=== PATIENT | female | born 1955 | race Caucasian/White ===

== ENCOUNTER 2016-02-08 13:33 | Inpatient (IN) | payer OTHER ==
--- NOTE | 2016-02-08 14:07 | ERNOTE ---
Medical Problem HPI - Narrative Date of Service: 02/08/16 - General Chief Complaint: General Assessment Time Seen by Provider: 02/08/16 13:58 Source: patient, family, RN/MD, EMS, RN notes reviewed, EMS notes reviewed, old records Exam Limitations: clinical condition - lethargic, arouses by voice to short conversation, falls back to sleep quickly - Immun/Allergies/Home Medications Immunizations: IMMUNIZATION HX Immunizations Up to Date No History of Influenza Vaccine Yes Hx Pneumococcal Vaccination Yes Allergies/Adverse Reactions: Allergies Penicillins Adverse Reaction (Intermediate, Verified 02/08/16 16:26) "body puffed up" topiramate [From Topamax] Adverse Reaction (Intermediate, Verified 02/08/16 16: 26) hallucinations, altering of mood gabapentin Adverse Reaction (Mild, Verified 02/08/16 16:26) PETE LOWER EXTREMITY WEAKNESS, NAUSEA latex Adverse Reaction (Mild, Verified 02/08/16 16:26) rash levofloxacin [From Levaquin] Adverse Reaction (Mild, Verified 02/08/16 16:26) Vomiting senna Adverse Reaction (Mild, Verified 02/08/16 16:26) Diarrhea Sulfa (Sulfonamide Antibiotics) [Sulfa(Sulfonamide Antibiotics)] Adverse Reaction (Mild, Verified 02/08/16 16:26) rash Home Medications: HOME MEDICATIONS Acetaminophen [Tylenol] 1,000 mg PO Q6H PRN 06/24/14 [Last Taken Unknown] Carbidopa/Levodopa 25/100 [Sinemet 25/100] 1 tab PO TID 06/24/14 [Last Taken Unknown] Clonazepam 4 mg PO HS 06/24/14 [Last Taken Unknown] Escitalopram Oxalate [Lexapro] 20 mg PO DAILY 06/24/14 [Last Taken Unknown] [place] Carbonate 300 mg PO BID 06/24/14 [Last Taken Unknown] Multivitamins [Multivitamin Junior] 1 cap PO DAILY 06/24/14 [Last Taken Unknown] Polyethylene Glycol 3350 [Miralax] 17 gm PO DAILY PRN 06/24/14 [Last Taken Unknown] traZODone HCL [Desyrel] 300 mg PO HS 06/24/14 [Last Taken Unknown] Calcium Carbonate [Msol-Fev-831] 500 mg PO TID 11/22/15 [Last Taken Unknown] Calcium Polycarbophil [Fibercon] 2 tab PO DAILY 11/22/15 [Last Taken Unknown] Cholecalciferol (Vitamin D3) [Vitamin D3] 2,000 unit PO DAILY 11/22/15 [Last Taken Unknown] Lamotrigine [Lamictal] 200 mg PO QPM 11/22/15 [Last Taken Unknown] Pregabalin [Lyrica] 25 mg PO HS 11/22/15 [Last Taken Unknown] Ziprasidone HCl [Geodon] 80 mg PO HS 11/22/15 [Last Taken Unknown] Cefuroxime Axetil [Ceftin] 500 mg PO BID 02/08/16 [Last Taken Unknown] Glatiramer Acetate [Copaxone] 20 mg SQ DAILY 02/08/16 [Last Taken Unknown] - History of Present History Narrative: This 60 year old female is brought into the Emergency Department by EMS ambulance and is soon accompanied by her who is also her primary caregiver. The has been having increasing problems arousing the patient today. At one point, he had difficulty lifting her so he called EMS for lifting help. Once they arrived and helped lift her, the patient's and EMS personnel became concerned enough that they decided to transport her here to the Emergency Department for evaluation. The patient smokes and strangely has numerous cigarette burn holes all over the chest and front of her nightgown she is wearing at this time. There are even 3 reddened cigarette burn joseph on the skin of her upper chest as well. The patient arouses easily to voice, but quickly falls right back to sleep after uttering a partial sentence or two in answer to my questions. She reports that she is fine and has no physical complaints at this time. Timing: constant Severity: moderate Modifying Factors - (Improves): Present: other - nothing in particular seems to make her primary problem of lethargy any better Modifying Factors - (Worsens): Present: other - it is unclear at this what seems to be worsening her lethargy Review of Systems - Review of Systems Constitutional: Present: no symptoms reported EYE: Present: no symptoms reported ENT: Present: no symptoms reported Respiratory: Present: no symptoms reported Cardiology: Present: no symptoms reported Gastrointestinal/Abdominal: Present: no symptoms reported Genitourinary: Present: no symptoms reported Musculoskeletal: Present: no symptoms reported Skin: Present: no symptoms reported Neurological: Present: no symptoms reported Endocrine: Present: no symptoms reported Hematologic/Lymphatic: Present: no symptoms reported Psych: Present: no symptoms reported All Other Systems: All systems neg except as marked - Patient's Past Medical History Patient History - Cancer: Skin Patient History - Surgical Procedures: Hysterectomy, T & A - Family History Mother Family History - Medical: Family History - Cardiac/Respiratory: CHF Father Family History - Medical: Other Family History - Cardiac/Respiratory: No pertinent hx - Social History Living Situations: significant other Smoking Status: Current every day smoker Alcohol Use: none Drug Use: none Physical Exam - Physical Exam General Appearance: Present: wd/wn, no apparent distress, lethargic, obese, sleeping/easy to arouse Eye Exam: Normal inspection: bilateral, PERRL: bilateral, EOMI: bilateral Ears, Nose, Throat: Present: normal ENT inspection, hearing grossly normal, normal pharynx Neck: Present: normal inspection, nontender Respiratory: Present: no respiratory distress, normal breath sounds, no accessory muscle use, chest nontender, lungs clear Cardiovascular/Chest: Present: regular rate, rhythm, no murmur, normal peripheral pulses Peripheral Pulses: N=norm/S=strong/W=weak/B=bound/A=absent: Carotid (R): Normal , Carotid (L): Normal, Radial (R): Normal, Radial (L): Normal, Femoral (R): Normal, Femoral (L): Normal, Dorsalis-pedis (R): Normal, Dorsalis-pedis (L): Normal Gastrointestinal/Abdominal: Present: normal bowel sounds, nontender, nondistended, soft, no organomegaly. Absent: guarding, rebound Back Exam: Present: normal inspection, normal range of motion, no CVA tenderness , no vertebral tenderness Extremity Exam: Present: normal inspection, non-tender, no edema, normal range of motion Neurological Exam: Present: alert, oriented, normal mood/affect, no motor/ sensory deficits DTR: N=norm/NB=norm/brisk/A=abs/DD=dull/dimin/HC=hyperactive: Bicep (R): Normal , Bicep (L): Normal, Knee (R): Normal, Knee (L): Normal Skin Exam: Present: normal color, warm/dry, other - 3 small reddened areas on upper chest that appear to be healing cigarette leahy Lymphatic Exam: Present: no adenopathy ED Progress - Vital Signs Vital Signs: Vital Signs 02/08/16 13:44 Temperature 37.7 C H Pulse Rate 61 Respiratory 16 Rate Blood Pressure 161/66 O2 Sat by Pulse 95 Oximetry - X-Ray X-Ray #1 X-Ray: chest Interpretation: Reviewed by me X-ray Comments: Bronchial wall prominence suggestive of bronchitis - CT/Ultrasound CT/Ultrasound Narrative: Head CT without contrast shows no acute intracranial process - Progress/Reassessment Chief Complaint: General Assessment Progress:: Improved Plan - Plan Plan: I discussed the patient's case with Dr Marita Matamoros, the patient's Primary Care Physician. He agreed to admit the patient to the hospital for further workup and care. Departure - Departure Clinical Impression: Altered mental status Qualifiers: Altered mental status type: stupor Qualified Code(s): R40.1 - Stupor Disposition: [facility] Condition: Stable
[2016-02-08] MEDS ORDERED: NORMAL SALINE 1,000 ML IV ONE (14:20)
[2016-02-08 14:47] LABS: Hematocrit 41.8 % (37.0-47.0); Hemoglobin 13.9 gm/dL (12.5-16.0); Mean Cell Volume 100.2 fl (78-100); Mean Corpuscular Hemoglobin 33.3 pg (27-31); Mean Corpuscular Hgb Conc 33.3 g/dl (32-36); Mean Platelet Volume 10.5 fl (6.0-9.5); Neutrophil # 11.5 K/mm3 (1.3-6.0); Neutrophil % 78.6 % (42-75.0); Platelet Count 176 K/mm3 (150-450); Red Blood Count 4.17 M/mm3 (4.2-5.4); Red Cell Distribution Width 12.3 % (11.5-14.0); White Blood Count 14.6 K/mm3 (4.0-10.5)
[2016-02-08 15:01] LABS: Albumin * 3.7 gm/dl (3.4-5.0); Anion Gap 11.6 mmol/L (6.8-13.8); BUN/Creatinine Ratio 10.3 (9.0-21.6); Bilirubin, Total 0.9 mg/dL (0.0-1.1); Ca. Corrected For Albumin 12.4 mg/dL (8.4-10.2); Calcium * 12.5 mg/dL (7.9-10.9); Carbon Dioxide 29.2 mmol/L (24-32.6); Potassium 3.8 mmol/L (3.4-4.6); Total Protein 7.1 gm/dL (6.2-8.2)
[2016-02-08 16:32] LABS: Urine Bilirubin Negative (NEGATIVE); Urine Blood Negative /ul (NEGATIVE); Urine Ketone Negative (NEGATIVE); Urine Nitrite Negative (NEGATIVE); Urine Protein Negative (NEGATIVE); Urine Urobilinogen Normal (NORMAL); Urine pH 7.5 pH (5.0-7.0)
[2016-02-08 16:47] LABS: Urine Appearance Slightly Cloudy; Urine Bacteria None Seen; Urine Color Yellow; Urine RBC None Seen /hpf (0-5); Urine WBC TRACE /hpf (0-5)
[2016-02-08] MEDS ORDERED: POLYETHYLENE GLYCOL 3350 119 GM BTL PO PRN (19:00)
[2016-02-08] MEDS ORDERED: AZITHROMYCIN 500 MG in DEXTROSE 5 % IN WATER 250 ML IV ONE ×2 (19:00)
[2016-02-08] MEDS: ENOXAPARIN SODIUM 40 MG/0.4 ML SYRG SC SCH (19:03)
[2016-02-08] MEDS: NORMAL SALINE 1,000 ML IV PRN (19:03)
--- NOTE | 2016-02-08 19:24 | HP ---
Chief Complaint - Chief Complaint Date of Service: 02/08/16 Time of Service: 19:05 Chief Complaint: Falls History of Present Illness: This is a 60 y/o woman with MS, Parkinson's and Bipolar Disorder. She resides at home with her . He called the EMS ambulance today because she had multiple falls this afternoon, and he was unable to get her up. In the ER, she was very lethargic, confused, and had lots of cigarette holes in her night gown , and some recent skin leahy, as she smokes, and apparently drops her cigarettes , at least recently. CT scan disclosed sphenoidal sinusitis. CXR was consistent with bronchits. WBC was modestly elevated, and Calcium level was 12.3. The patient also takes [place]. Cultures are pending. - Patient's Past Medical History Patient History - Medical: Bipolar, Chronic Pain, GERD, Headache, Other - insomnia, constipation, low back pain, diarrhea, uninary incontinenc, diarrhea, neuropathy,GERD Patient History - Cardiac/Respiratory: Hypertension, Hyperlipidemia Patient History - Cancer: No Hx of Cancer, Skin Patient History - Surgical Procedures: Hysterectomy, T & A, Other - cubital tunnel surgery, dental extraction, urinary incontinence procedure, stool disimpaction - Family History Mother Family History - Cardiac/Respiratory: CHF Father Family History - Medical: Other - Parkinson's - Social History Living Situations: significant other Smoking Status: Current some day smoker Have you smoked in the past 12 months: Yes - unknown Alcohol Use: none Drug Use: none Review Of Systems (GEN) - Review of Systems Generalized/Overall Review: Present: No Symptoms Reported - unable to provide, poor historian due to lethargy. Allergies/Adverse Reactions: Allergies Allergy/AdvReac Type Severity Reaction Status Date / Time Penicillins AdvReac Intermediate "body Verified 02/08/16 16:26 puffed up" topiramate [From Topamax] AdvReac Intermediate hallucinations, Verified 16:26 altering of mood gabapentin AdvReac Mild PETE LOWER Verified 02/08/16 16:26 EXTREMITY WEAKNESS, NAUSEA latex AdvReac Mild rash Verified 02/08/16 16:26 levofloxacin [From Levaquin] AdvReac Mild Vomiting Verified 02/08/16 16:26 senna AdvReac Mild Diarrhea Verified 02/08/16 16:26 Sulfa (Sulfonamide AdvReac Mild rash Verified 02/08/16 16:26 Antibiotics) [Sulfa(Sulfonamide Antibiotics)] Home Medications: HOME MEDICATIONS Acetaminophen [Tylenol] 1,000 mg PO Q6H PRN 06/24/14 [Last Taken Unknown] Carbidopa/Levodopa 25/100 [Sinemet 25/100] 1 tab PO TID 06/24/14 [Last Taken Unknown] Clonazepam 4 mg PO HS 06/24/14 [Last Taken Unknown] Escitalopram Oxalate [Lexapro] 20 mg PO DAILY 06/24/14 [Last Taken Unknown] [place] Carbonate 300 mg PO BID 06/24/14 [Last Taken Unknown] Multivitamins [Multivitamin Junior] 1 cap PO DAILY 06/24/14 [Last Taken Unknown] Polyethylene Glycol 3350 [Miralax] 17 gm PO DAILY PRN 06/24/14 [Last Taken Unknown] traZODone HCL [Desyrel] 300 mg PO HS 06/24/14 [Last Taken Unknown] Calcium Carbonate [[id number]-321] 500 mg PO TID 11/22/15 [Last Taken Unknown] Calcium Polycarbophil [Fibercon] 2 tab PO DAILY 11/22/15 [Last Taken Unknown] Cholecalciferol (Vitamin D3) [Vitamin D3] 2,000 unit PO DAILY 11/22/15 [Last Taken Unknown] Lamotrigine [Lamictal] 200 mg PO QPM 11/22/15 [Last Taken Unknown] Pregabalin [Lyrica] 25 mg PO HS 11/22/15 [Last Taken Unknown] Ziprasidone HCl [Geodon] 80 mg PO HS 11/22/15 [Last Taken Unknown] Cefuroxime Axetil [Ceftin] 500 mg PO BID 02/08/16 [Last Taken Unknown] Glatiramer Acetate [Copaxone] 20 mg SQ DAILY 02/08/16 [Last Taken Unknown] Exam - Exam Vital Signs: Vital Signs - Last Taken Selected Entries 02/08/16 18:46 Temperature 37.0 C Temperature Oral Source Pulse Rate 59 L Respiratory 20 Rate Blood Pressure 149/72 O2 Sat by Pulse 96 Oximetry Oxygen Delivery Room Air Method Constitutional: Present: Obtunded, Morbidly obese, Looks Older than stated age ENT Exam: Present: normal ENT inspection Eye Exam: bilateral eye: normal inspection, PERRL, EOMI Neck: Present: normal inspection Back Exam: Present: normal inspection Respiratory: Present: lungs clear, no respiratory distress Cardiovascular/Chest: Present: regular rate, rhythm, no murmur Abdomen: Present: Normal bowel sounds, soft, nontender, nondistended, no rebound tenderness, no hepatospenomegaly, no masses, obese Extremity: Present: lower extremity edema Skin Exam: Present: no cyanosis, cool/dry, other - a few recent cigarette leahy on torso Neurologic: Present: motor weakness, disoriented x 3, other - wheelchair Appearance: Present: other Eye contact: Present: decreased rate of speech Thoughts: Present: other Diagnostic Studies: Laboratory Results WBC 14.6 K/mm3 (4.0-10.5) H 02/08/16 14:36 RBC 4.17 M/mm3 (4.2-5.4) L 02/08/16 14:36 Hgb 13.9 gm/dL (12.5-16.0) 02/08/16 14:36 Hct 41.8 % (37.0-47.0) 02/08/16 14:36 MCV 100.2 fl (78-100) H 02/08/16 14:36 MCH 33.3 pg (27-31) H 02/08/16 14:36 MCHC 33.3 g/dl (32-36) 02/08/16 14:36 RDW 12.3 % (11.5-14.0) 02/08/16 14:36 Plt Count 176 K/mm3 (150-450) 02/08/16 14:36 MPV 10.5 fl (6.0-9.5) H 02/08/16 14:36 Immature Gran % (Auto) 0.40 % (0.001-0.429) 02/08/16 14:36 Immature Gran # (Auto) 0.06 K/mm3 (0.000-0.0310) H 02/08/16 14:36 Neutrophils % 78.6 % (42-75.0) H 02/08/16 14:36 Lymphocytes % 13.9 % (20-51) L 02/08/16 14:36 Monocytes % 6.0 % (0.0-9) 02/08/16 14:36 Eosinophils % 0.8 % (0.0-3.0) 02/08/16 14:36 Basophils % 0.3 % (0.0-1.0) 02/08/16 14:36 Nucleated RBC % 0.0 k/mm3 (0-1) 02/08/16 14:36 Neutrophils # 11.5 K/mm3 (1.3-6.0) H 02/08/16 14:36 Lymphocytes # 2.0 k/mm3 (1.5-3.5) 02/08/16 14:36 Monocytes # 0.9 k/mm3 (0.0-1.0) 02/08/16 14:36 Eosinophils # 0.1 k/mm3 (0.0-0.7) 02/08/16 14:36 Absolute Basophils 0.0 k/mm3 (0.0-0.1) 02/08/16 14:36 Sodium 143 mmol/L (132-142) H 02/08/16 14:36 Plasma Sodium 143 mmol/L (130-142) H 02/08/16 14:36 Potassium 3.8 mmol/L (3.4-4.6) 02/08/16 14:36 Chloride 106 mmol/L (97-106) 02/08/16 14:36 Carbon Dioxide 29.2 mmol/L (24-32.6) 02/08/16 14:36 Anion Gap 11.6 mmol/L (6.8-13.8) 02/08/16 14:36 BUN 15 mg/dL (3-23) 02/08/16 14:36 Creatinine 1.45 mg/dL (0.4-1.4) H D 02/08/16 14:36 Est GFR (Non-Af Amer) 39 mL/min (60-130) L D 02/08/16 14:36 BUN/Creatinine Ratio 10.3 (9.0-21.6) 02/08/16 14:36 Random Glucose 104 mg/dL (70-110) 02/08/16 14:36 Lactic Acid, Venous 1.0 mmol/L (0.4-2.0) 02/08/16 14:36 Calcium 12.5 mg/dL (7.9-10.9) H 02/08/16 14:36 Calcium Adj for Albumin 12.4 mg/dL (8.4-10.2) H 02/08/16 14:36 Total Bilirubin 0.9 mg/dL (0.0-1.1) 02/08/16 14:36 AST 10 U/L (0-48) 02/08/16 14:36 ALT 18 U/L (19-67) L 02/08/16 14:36 Alkaline Phosphatase 67 U/L (50-170) 02/08/16 14:36 Total Protein 7.1 gm/dL (6.2-8.2) 02/08/16 14:36 Albumin 3.7 gm/dl (3.4-5.0) 02/08/16 14:36 Urine Color Yellow 02/08/16 14:08 Urine Appearance Slightly cloudy 02/08/16 14:08 Urine pH 7.5 pH (5.0-7.0) 02/08/16 14:08 Ur Specific [place] 1.010 SP.GR. (1.005-1.010) 02/08/16 14:08 Urine Protein Negative mg/dL (NEGATIVE) 02/08/16 14:08 Urine Glucose (UA) Negative mg/dL (NEGATIVE) 02/08/16 14:08 Urine Ketones Negative mg/dL (NEGATIVE) 02/08/16 14:08 Urine Blood Negative /ul (NEGATIVE) 02/08/16 14:08 Urine Nitrate Negative (NEGATIVE) 02/08/16 14:08 Urine Bilirubin Negative mg/dl (NEGATIVE) 02/08/16 14:08 Urine Urobilinogen Normal EU/dl (NORMAL) 02/08/16 14:08 Ur Leukocyte Esterase Negative /ul (NEGATIVE) 02/08/16 14:08 Urine RBC None seen /hpf (0-5) 02/08/16 14:08 Urine WBC Trace /hpf (0-5) H 02/08/16 14:08 Ur Epithelial Cells None seen /hpf (0-5) 02/08/16 14:08 Urine Bacteria None seen (NONE) 02/08/16 14:08 Urine Culture Comments No culture indicated 02/08/16 14:08 Assessment/Plan - Narrative Narrative: Minimize medications. [place] level (unfortunately, a sendout). Follow calcium. IV fluids for the calcium. Followup labs in the morning. IV antibiotics. Cultures pending. Consider psych/neuro consult. Estimated stay 3 -4 days, probably. It is a dangerous situation at home for her to be dropping lit cigarettes onto herself, so we will obtain a social work instructor consult. Tdap. Bacitracin for cigarette leahy. - Assessment/Plan (1) Hypercalcemia Assessment: May be due to hypercalcemia, or to lithium, or to other medications, or to her infection, or to her MS or to a combination of factors. Problem: Acute (2) Sinusitis Problem: Acute Qualifiers: Sinusitis location: sphenoidal Chronicity: acute Recurrence: non- recurrent Qualified Code(s): J01.30 - Acute sphenoidal sinusitis, unspecified (3) Bronchitis Problem: Acute (4) Burn Assessment: due to dropping cigarettes onto her person due to her altered mental status Problem: Acute (5) Multiple sclerosis Problem: Chronic (6) Parkinsons Problem: Chronic (7) Bipolar 1 disorder Problem: Chronic (8) Altered mental status Problem: Acute Qualifiers: Altered mental status type: stupor Qualified Code(s): R40.1 - Stupor (9) Tobacco abuse Problem: Chronic
[2016-02-08] MEDS: clonazePAM 1 MG TABLET PO SCH (21:53)
[2016-02-09] MEDS: NORMAL SALINE 1,000 ML IV PRN ×2 (05:34→16:13)
[2016-02-09 05:44] LABS: Hematocrit 38.6 % (37.0-47.0); Hemoglobin 12.9 gm/dL (12.5-16.0); Mean Cell Volume 99.7 fl (78-100); Mean Corpuscular Hemoglobin 33.3 pg (27-31); Mean Corpuscular Hgb Conc 33.4 g/dl (32-36); Mean Platelet Volume 11.2 fl (6.0-9.5); Neutrophil # 10.2 K/mm3 (1.3-6.0); Neutrophil % 67.4 % (42-75.0); Platelet Count 158 K/mm3 (150-450); Red Blood Count 3.87 M/mm3 (4.2-5.4); Red Cell Distribution Width 12.4 % (11.5-14.0); White Blood Count 15.1 K/mm3 (4.0-10.5)
[2016-02-09 06:25] LABS: Albumin * 3.3 gm/dl (3.4-5.0); BUN/Creatinine Ratio 10.9 (9.0-21.6); Bilirubin, Total 0.7 mg/dL (0.0-1.1); Ca. Corrected For Albumin 10.8 mg/dL (8.4-10.2); Calcium * 10.6 mg/dL (7.9-10.9); Carbon Dioxide 25.3 mmol/L (24-32.6); Potassium 3.3 mmol/L (3.4-4.6); T4 Free * 1.06 ng/dL (0.76-1.46); TSH * 1.138 uIU/mL (0.358-3.74); Total Protein 6.4 gm/dL (6.2-8.2)
[2016-02-09] MEDS: BACITRACIN ZINC 30 APPL TUBE TP SCH ×2 (09:15→21:36)
[2016-02-09] MEDS: ESCITALOPRAM OXALATE 10 MG TAB PO SCH (09:15)
[2016-02-09] MEDS: AZITHROMYCIN 500 MG in DEXTROSE 5 % IN WATER 250 ML IV SCH ×2 (09:15)
[2016-02-09] MEDS: MULTIVITAMINS 1 CAP CAPSULE PO SCH (09:15)
[2016-02-09] MEDS: CALCIUM POLYCARBOPHIL 625 MG TABLET PO SCH (09:15)
[2016-02-09] MEDS: COPAXONE 20 MG SQ SCH (10:49)
[2016-02-09] MEDS ORDERED: POLYETHYLENE GLYCOL 3350 119 GM BTL PO PRN (11:35)
[2016-02-09 12:51] LABS: Urine Bilirubin Negative (NEGATIVE); Urine Blood 250 /ul (NEGATIVE); Urine Ketone Negative (NEGATIVE); Urine Protein >=300 mg/dL (NEGATIVE); Urine Urobilinogen Normal (NORMAL)
[2016-02-09 13:40] LABS: Urine Appearance Bloody; Urine Color Red; Urine Nitrite Positive (NEGATIVE)
[2016-02-09 13:41] LABS: Urine Bacteria TRACE; Urine RBC 125-150 /hpf (0-5); Urine Renal Epithelial Cell TRACE /hpf
[2016-02-09] MEDS: ACETAMINOPHEN 500 MG TABLET PO PRN (15:53)
[2016-02-09] MEDS: ENOXAPARIN SODIUM 40 MG/0.4 ML SYRG SC SCH (17:26)
[2016-02-09] MEDS ORDERED: POTASSIUM CHLORIDE 10 MEQ in DEXTROSE 5%-0.5 NORMAL SALINE 995 ML IV PRN (19:09)
--- NOTE | 2016-02-09 19:14 | PN ---
Subjective - Date and Time Seen Date: 02/09/16 Time: 06:50 Subjective Narrative: Somnolent. Poor historian. Calcium normalized. Na high. K low. [place] level is a send out and is pending. WBC is higher slightly. Objective - Review of Systems Generalized/Overall Review: Reports: Malaise EENTM: Reports: No Symptoms Reported Respiratory: Reports: No Symptoms Reported Cardiac: Reports: No Symptoms Reported Abdominal: Reports: No Symptoms Reported Genitourinary Symptoms: Reports: No Symptoms Reported Neurological: Reports: No Symptoms Reported Skin: Reports: No Symptoms Reported Endocrine: Reports: No Symptoms Reported Misc: All systems neg except as marked - Vitals Vitals: Last Vital Signs Selected Entries 02/09/16 06:13 Temperature 37.1 C Temperature Axillary Source Pulse Rate 63 Respiratory 16 Rate Respiratory Normal Depth Respiratory Normal Effort Non-Labored Respiratory Normal Pattern Blood Pressure 165/65 Blood Pressure Supine Position O2 Sat by Pulse 95 Oximetry Oxygen Delivery Room Air Method - Abnormal Lab Findings Abnormal Lab Findings: Abnormal Lab Results 02/09/16 02/09/16 02/09/16 Range/Units 05:40 05:40 12:10 WBC 15.1 H (4.0-10.5) K/mm3 RBC 3.87 L (4.2-5.4) M/mm3 MCH 33.3 H (27-31) pg MPV 11.2 H (6.0-9.5) fl Immature Gran # (Auto) 0.04 H (0.000-0.0310) K/mm3 Neutrophils # 10.2 H (1.3-6.0) K/mm3 Lymphocytes # 3.7 H (1.5-3.5) k/mm3 Sodium 144 H (132-142) mmol/L Plasma Sodium 144 H (130-142) mmol/L Potassium 3.3 L (3.4-4.6) mmol/L Chloride 109 H (97-106) mmol/L Est GFR (Non-Af Amer) 49 L D (60-130) mL/min Calcium Adj for Albumin 10.8 H (8.4-10.2) mg/dL ALT 18 L (19-67) U/L Albumin 3.3 L (3.4-5.0) gm/dl Urine pH 8.0 H (5.0-7.0) pH Urine Protein >=300 H (NEGATIVE) mg/dL Urine Blood 250 H (NEGATIVE) /ul Urine Nitrate Positive H (NEGATIVE) Prot Sulfosalicylic Acd 4+ H (0) mg/dL Ur Leukocyte Esterase 25 H (NEGATIVE) /ul Urine WBC 5-10 H (0-5) /hpf Ur Epithelial Cells 10-25 H (0-5) /hpf - Exam Constitutional: Present: Cooperative, Well developed, Somnolent, Morbidly obese ENT Exam: Present: normal ENT inspection Neck: Present: normal inspection Respiratory: Present: lungs clear, no respiratory distress Cardiovascular/Chest: Present: regular rate, rhythm, no murmur Abdomen: Present: Normal bowel sounds, soft, nontender, nondistended, no rebound tenderness, no hepatospenomegaly, no masses, obese Extremity: Present: pedal edema Skin Exam: Present: no cyanosis, cool/dry Neurologic: Present: disoriented x 3 Appearance: Present: appropriate appearance, neat Eye contact: Present: cooperative Assessment/Plan Plan Narrative: Await lithium level. Adjust IV fluids. Continue IV antibiotics. Follow labs. PT OT. - Problems/Diagnosis (1) Hypercalcemia Problem: Resolved (2) Sinusitis Problem: Acute Qualifiers: Sinusitis location: sphenoidal Chronicity: acute Recurrence: non- recurrent Qualified Code(s): J01.30 - Acute sphenoidal sinusitis, unspecified (3) Bronchitis Problem: Acute (4) Burn Problem: Acute (5) Multiple sclerosis Problem: Chronic (6) Parkinsons Problem: Chronic (7) Bipolar 1 disorder Problem: Chronic (8) Altered mental status Problem: Acute Qualifiers: Altered mental status type: stupor Qualified Code(s): R40.1 - Stupor (9) Tobacco abuse Problem: Chronic (10) Hypernatremia Problem: Acute (11) Acute hypokalemia Problem: Acute
[2016-02-09] MEDS ORDERED: [UNRECOGNIZED DRUG - OTHER] IV PRN ×2 (21:07)
[2016-02-09] MEDS ORDERED: DEXTROSE IV PRN ×2 (21:07)
[2016-02-09] MEDS ORDERED: POTASSIUM CHLORIDE IV PRN ×2 (21:07)
[2016-02-09] MEDS: clonazePAM 1 MG TABLET PO SCH (21:35)
[2016-02-09] MEDS ORDERED: POTASSIUM CHLORIDE/D5-0.5NS 1,000 ML IV PRN (23:30)
[2016-02-09] MEDS ORDERED: POTASSIUM CHLORIDE/D5-0.5NS 1,000 ML IV SCH (23:30)
[2016-02-10] MEDS: ACETAMINOPHEN 500 MG TABLET PO PRN (02:15)
[2016-02-10 05:31] LABS: Hematocrit 37.3 % (37.0-47.0); Hemoglobin 12.4 gm/dL (12.5-16.0); Mean Cell Volume 100.3 fl (78-100); Mean Corpuscular Hemoglobin 33.3 pg (27-31); Mean Corpuscular Hgb Conc 33.2 g/dl (32-36); Mean Platelet Volume 11.4 fl (6.0-9.5); Neutrophil # 8.6 K/mm3 (1.3-6.0); Neutrophil % 64.5 % (42-75.0); Platelet Count 153 K/mm3 (150-450); Red Blood Count 3.72 M/mm3 (4.2-5.4); Red Cell Distribution Width 12.5 % (11.5-14.0); White Blood Count 13.4 K/mm3 (4.0-10.5)
[2016-02-10 05:48] LABS: Anion Gap 15.1 mmol/L (6.8-13.8); Bilirubin, Total 0.5 mg/dL (0.0-1.1); Ca. Corrected For Albumin 9.8 mg/dL (8.4-10.2); Calcium * 9.3 mg/dL (7.9-10.9); Carbon Dioxide 23.4 mmol/L (24-32.6); Potassium 3.5 mmol/L (3.4-4.6); Total Protein 6.1 gm/dL (6.2-8.2)
[2016-02-10] MEDS: MULTIVITAMINS 1 CAP CAPSULE PO SCH (09:12)
[2016-02-10] MEDS: COPAXONE 20 MG SQ SCH (09:12)
[2016-02-10] MEDS: CALCIUM POLYCARBOPHIL 625 MG TABLET PO SCH (09:12)
[2016-02-10] MEDS: BACITRACIN ZINC 30 APPL TUBE TP SCH ×2 (09:12→20:17)
[2016-02-10] MEDS: ESCITALOPRAM OXALATE 10 MG TAB PO SCH (09:12)
[2016-02-10] MEDS: ENALAPRIL MALEATE 20 MG TABLET PO SCH ×2 (09:13→20:18)
[2016-02-10] MEDS: AZITHROMYCIN 500 MG in DEXTROSE 5 % IN WATER 250 ML IV SCH ×2 (10:36)
[2016-02-10] MEDS: NYSTATIN 15 APPL BTL TP SCH ×2 (11:26→20:18)
--- NOTE | 2016-02-10 15:15 | PN ---
<Afsaneh Mackay - Last Filed: 02/10/16 16:27> Subjective - Date and Time Seen Date: 02/10/16 Time: 12:00 Subjective Narrative: patient seen today during lunch, she is alert to self and poor historian. Objective - Review of Systems Generalized/Overall Review: Reports: No Symptoms Reported EENTM: Reports: No Symptoms Reported Respiratory: Reports: No Symptoms Reported Abdominal: Reports: No Symptoms Reported Genitourinary Symptoms: Reports: No Symptoms Reported Neurological: Reports: No Symptoms Reported Skin: Reports: No Symptoms Reported - Vitals Vitals: Last Vital Signs Temp 36.8 C 02/10/16 14:52 Pulse 75 02/10/16 14:52 Resp 20 02/10/16 14:52 BP 151/55 02/10/16 14:52 Pulse Ox 96 02/10/16 14:52 - Abnormal Lab Findings Abnormal Lab Findings: Abnormal Lab Results 02/10/16 02/10/16 Range/Units 05:21 05:21 WBC 13.4 H (4.0-10.5) K/mm3 RBC 3.72 L (4.2-5.4) M/mm3 Hgb 12.4 L (12.5-16.0) gm/dL MCV 100.3 H (78-100) fl MCH 33.3 H (27-31) pg MPV 11.4 H (6.0-9.5) fl Immature Gran # (Auto) 0.05 H (0.000-0.0310) K/mm3 Neutrophils # 8.6 H (1.3-6.0) K/mm3 Sodium 144 H (132-142) mmol/L Plasma Sodium 144 H (130-142) mmol/L Chloride 109 H (97-106) mmol/L Carbon Dioxide 23.4 L (24-32.6) mmol/L Anion Gap 15.1 H (6.8-13.8) mmol/L Est GFR (Non-Af Amer) 53 L (60-130) mL/min BUN/Creatinine Ratio 8.0 L (9.0-21.6) Random Glucose 122 H (70-110) mg/dL Total Protein 6.1 L (6.2-8.2) gm/dL Albumin 3.0 L (3.4-5.0) gm/dl - Exam Constitutional: Present: Lethargic, Morbidly obese, Looks Older than stated age ENT Exam: Present: moist mucous membranes Neck: Present: full range of motion Breasts: Present: Exam deferred Respiratory: Present: chest non-tender, lungs clear, normal breath sounds, no respiratory distress Cardiovascular/Chest: Present: normal peripheral pulses, no chest tenderness /Rectal: Present: Other - matias cath with blood tint urine Extremity: Present: normal range of motion, non-tender, normal inspection, lower extremity edema, other - rigth hand and arm edema Neurologic: Present: alert, depressed affect Appearance: Present: impaired insight Eye contact: Present: good eye contact, normal speech Thoughts: Present: no apparent hallucination Assessment/Plan Plan Narrative: Sinusitis CT head no acute intracranial abnormality, incidental findings sinusitis. on adm WBC14.6----->15.1----->13.4 Acute sphenoidal sinusitis, unspecified continue with antibiotics Bronchitis Problem: Acute Burn Reports of cigarette accidentally falling on pt continue with use of Bacitracin Multiple sclerosis Chronic continue with copaxone edema to hands and feet likely due to copaxone side effect. continue with PT/OT evaluation and treatment. Parkinsons Chronic Bipolar 1 disorder Chronic lithium level still pending, its a send out lab. Altered mental status Problem: Acute Qualifiers: Altered mental status type: stupor Qualified Code(s): R40.1 - Stupor Tobacco abuse Chronic smoking cessation unable to educated at current time due to motivation and medical status. Hypernatremia Problem: Acute monitor BMP in am Acute hypokalemia resolved Hypercalcemia Resolved Hematuria with urinary retention KUB pending Urine culture no growth Keep Matias cath for correct out-pt - Problems/Diagnosis (1) Hypercalcemia Problem: Resolved (2) Multiple sclerosis Problem: Chronic (3) Hypernatremia Problem: Acute (4) Acute urinary retention Problem: Acute (5) Hematuria Problem: Acute <Robert Christina - Last Filed: 02/10/16 18:14> Objective - Vitals Vitals: Last Vital Signs Temp 36.8 C 02/10/16 14:52 Pulse 75 02/10/16 14:52 Resp 20 02/10/16 14:52 BP 151/55 02/10/16 14:52 Pulse Ox 96 02/10/16 14:52 - Abnormal Lab Findings Abnormal Lab Findings: Abnormal Lab Results 02/10/16 02/10/16 Range/Units 05:21 05:21 WBC 13.4 H (4.0-10.5) K/mm3 RBC 3.72 L (4.2-5.4) M/mm3 Hgb 12.4 L (12.5-16.0) gm/dL MCV 100.3 H (78-100) fl MCH 33.3 H (27-31) pg MPV 11.4 H (6.0-9.5) fl Immature Gran # (Auto) 0.05 H (0.000-0.0310) K/mm3 Neutrophils # 8.6 H (1.3-6.0) K/mm3 Sodium 144 H (132-142) mmol/L Plasma Sodium 144 H (130-142) mmol/L Chloride 109 H (97-106) mmol/L Carbon Dioxide 23.4 L (24-32.6) mmol/L Anion Gap 15.1 H (6.8-13.8) mmol/L Est GFR (Non-Af Amer) 53 L (60-130) mL/min BUN/Creatinine Ratio 8.0 L (9.0-21.6) Random Glucose 122 H (70-110) mg/dL Total Protein 6.1 L (6.2-8.2) gm/dL Albumin 3.0 L (3.4-5.0) gm/dl Assessment/Plan Plan Narrative: I have reviewed the record and have examined the patient. I directly supervised all of [facility] care for this atient. Patient's abdomen plain film is unremarkable. She needs an ultrasound, which I will order. We will wait for [place] level, follow labs and continue IV antibiotics. We will adjust IV fluids. - Problems/Diagnosis (1) Hypercalcemia Problem: Resolved (2) Sinusitis Problem: Acute Qualifiers: Sinusitis location: sphenoidal Chronicity: acute Recurrence: non- recurrent Qualified Code(s): J01.30 - Acute sphenoidal sinusitis, unspecified (3) Bronchitis Problem: Acute (4) Burn Problem: Acute (5) Multiple sclerosis Problem: Chronic (6) Parkinsons Problem: Chronic (7) Bipolar 1 disorder Problem: Chronic (8) Altered mental status Problem: Acute Qualifiers: Altered mental status type: stupor Qualified Code(s): R40.1 - Stupor (9) Tobacco abuse Problem: Chronic (10) Hypernatremia Problem: Acute (11) Acute hypokalemia Problem: Acute
[2016-02-10] MEDS ORDERED: POTASSIUM CHLORIDE/D5-0.5NS 1,000 ML IV SCH (16:00)
[2016-02-10] MEDS: ENOXAPARIN SODIUM 40 MG/0.4 ML SYRG SC SCH (17:26)
[2016-02-10] MEDS: DEXTROSE 5%-0.2 NORMAL SALINE 1,000 ML IV PRN (18:49)
[2016-02-10] MEDS: clonazePAM 1 MG TABLET PO SCH (20:19)
[2016-02-11] MEDS: DEXTROSE 5%-0.2 NORMAL SALINE 1,000 ML IV PRN ×3 (02:52→21:27)
[2016-02-11 05:21] LABS: Hematocrit 38.2 % (37.0-47.0); Hemoglobin 12.7 gm/dL (12.5-16.0); Mean Cell Volume 99.5 fl (78-100); Mean Corpuscular Hemoglobin 33.1 pg (27-31); Mean Corpuscular Hgb Conc 33.2 g/dl (32-36); Mean Platelet Volume 11.5 fl (6.0-9.5); Neutrophil % 64.4 % (42-75.0); Platelet Count 172 K/mm3 (150-450); Red Blood Count 3.84 M/mm3 (4.2-5.4); Red Cell Distribution Width 12.5 % (11.5-14.0); White Blood Count 13.9 K/mm3 (4.0-10.5)
[2016-02-11 06:09] LABS: Anion Gap 15.4 mmol/L (6.8-13.8); BUN/Creatinine Ratio 5.1 (9.0-21.6); Calcium * 8.7 mg/dL (7.9-10.9); Estimated Creat Clear 53.7; Potassium 3.4 mmol/L (3.4-4.6)
[2016-02-11] MEDS: CALCIUM POLYCARBOPHIL 625 MG TABLET PO SCH (08:34)
[2016-02-11] MEDS: BACITRACIN ZINC 30 APPL TUBE TP SCH ×2 (08:34→20:07)
[2016-02-11] MEDS: COPAXONE 20 MG SQ SCH (08:34)
[2016-02-11] MEDS: NYSTATIN 15 APPL BTL TP SCH ×2 (08:35→20:07)
[2016-02-11] MEDS: ESCITALOPRAM OXALATE 10 MG TAB PO SCH (08:35)
[2016-02-11] MEDS: MULTIVITAMINS 1 CAP CAPSULE PO SCH (08:35)
[2016-02-11] MEDS: ENALAPRIL MALEATE 20 MG TABLET PO SCH ×2 (08:36→20:08)
[2016-02-11] MEDS: AZITHROMYCIN 500 MG in DEXTROSE 5 % IN WATER 250 ML IV SCH ×2 (09:35)
[2016-02-11] MEDS: POTASSIUM CHLORIDE 10 MEQ TABLET.SA PO SCH ×2 (09:35→17:29)
--- NOTE | 2016-02-11 15:31 | PN ---
Subjective - Date and Time Seen Date: 02/11/16 Time: 09:30 Subjective Narrative: Less somnolent. Poor historian. Calcium normalized. Na high. K low. [place] level is normal. WBC is about the same. Objective - Review of Systems Generalized/Overall Review: Reports: Weakness, Malaise EENTM: Reports: No Symptoms Reported Respiratory: Reports: No Symptoms Reported Cardiac: Reports: No Symptoms Reported Abdominal: Reports: No Symptoms Reported Genitourinary Symptoms: Reports: No Symptoms Reported Musculoskeletal Complaints: Reports: No Symptoms Reported Neurological: Reports: No Symptoms Reported Skin: Reports: No Symptoms Reported Endocrine: Reports: No Symptoms Reported Misc: All systems neg except as marked - Vitals Vitals: Last Vital Signs Selected Entries 02/11/16 07:57 Temperature 36.8 C Temperature Oral Source Pulse Rate 67 Respiratory 18 Rate Blood Pressure 118/70 O2 Sat by Pulse 96 Oximetry Oxygen Delivery Room Air Method - Abnormal Lab Findings Abnormal Lab Findings: Abnormal Lab Results 02/11/16 02/11/16 Range/Units 05:00 05:00 WBC 13.9 H (4.0-10.5) K/mm3 RBC 3.84 L (4.2-5.4) M/mm3 MCH 33.1 H (27-31) pg MPV 11.5 H (6.0-9.5) fl Neutrophils # 9.0 H (1.3-6.0) K/mm3 Lymphocytes # 3.6 H (1.5-3.5) k/mm3 Sodium 144 H (132-142) mmol/L Plasma Sodium 144 H (130-142) mmol/L Chloride 111 H (97-106) mmol/L Carbon Dioxide 21.0 L (24-32.6) mmol/L Anion Gap 15.4 H (6.8-13.8) mmol/L BUN/Creatinine Ratio 5.1 L (9.0-21.6) Random Glucose 129 H (70-110) mg/dL - Exam Constitutional: Present: Cooperative, Well developed, Lethargic, Somnolent, Morbidly obese ENT Exam: Present: normal ENT inspection, hearing grossly normal Neck: Present: normal inspection Respiratory: Present: lungs clear, no respiratory distress Cardiovascular/Chest: Present: regular rate, rhythm, no murmur Abdomen: Present: Normal bowel sounds, soft, nontender, nondistended, no rebound tenderness, no hepatospenomegaly, no masses, obese Extremity: Present: swelling Skin Exam: Present: normal color, warm/dry, no cyanosis Appearance: Present: appropriate appearance, neat Eye contact: Present: cooperative Thoughts: Present: no apparent hallucination Cauti Physician Documentation - Urinary Catheter Management Urethral ([place]) Date of Insertion: 02/09/16 Time of Insertion: 10:44 Assessment/Plan Plan Narrative: continue IV antibiotics. follow labs. minimental exam. PT OT> minimental exam. - Problems/Diagnosis (1) Hypercalcemia Problem: Resolved (2) Sinusitis Problem: Acute Qualifiers: Sinusitis location: sphenoidal Chronicity: acute Recurrence: non- recurrent Qualified Code(s): J01.30 - Acute sphenoidal sinusitis, unspecified (3) Bronchitis Problem: Acute (4) Burn Problem: Acute (5) Multiple sclerosis Problem: Chronic (6) Parkinsons Problem: Chronic (7) Bipolar 1 disorder Problem: Chronic (8) Altered mental status Problem: Resolved Qualifiers: Altered mental status type: stupor Qualified Code(s): R40.1 - Stupor (9) Tobacco abuse Problem: Chronic (10) Hypernatremia Problem: Acute (11) Acute hypokalemia Problem: Acute
[2016-02-11] MEDS: ACETAMINOPHEN 500 MG TABLET PO PRN (17:28)
[2016-02-11] MEDS: ENOXAPARIN SODIUM 40 MG/0.4 ML SYRG SC SCH (17:29)
[2016-02-11] MEDS: clonazePAM 1 MG TABLET PO SCH (20:09)
[2016-02-12] MEDS: DEXTROSE 5%-0.2 NORMAL SALINE 1,000 ML IV PRN ×3 (05:20→23:05)
[2016-02-12 05:33] LABS: Hematocrit 37.5 % (37.0-47.0); Hemoglobin 12.6 gm/dL (12.5-16.0); Mean Cell Volume 98.4 fl (78-100); Mean Corpuscular Hemoglobin 33.1 pg (27-31); Mean Corpuscular Hgb Conc 33.6 g/dl (32-36); Mean Platelet Volume 11.6 fl (6.0-9.5); Neutrophil # 7.5 K/mm3 (1.3-6.0); Neutrophil % 62.3 % (42-75.0); Platelet Count 196 K/mm3 (150-450); Red Blood Count 3.81 M/mm3 (4.2-5.4); Red Cell Distribution Width 12.5 % (11.5-14.0)
[2016-02-12 06:00] LABS: Anion Gap 13.8 mmol/L (6.8-13.8); BUN/Creatinine Ratio 3.4 (9.0-21.6); Calcium * 8.3 mg/dL (7.9-10.9); Carbon Dioxide 24.5 mmol/L (24-32.6); Estimated Creat Clear 59.7; Potassium 3.3 mmol/L (3.4-4.6)
[2016-02-12] MEDS: CALCIUM POLYCARBOPHIL 625 MG TABLET PO SCH (08:43)
[2016-02-12] MEDS: POTASSIUM CHLORIDE 10 MEQ TABLET.SA PO SCH ×2 (08:43→17:08)
[2016-02-12] MEDS: BACITRACIN ZINC 30 APPL TUBE TP SCH ×2 (08:43→21:18)
[2016-02-12] MEDS: COPAXONE 20 MG SQ SCH (08:43)
[2016-02-12] MEDS: MULTIVITAMINS 1 CAP CAPSULE PO SCH (08:44)
[2016-02-12] MEDS: ENALAPRIL MALEATE 20 MG TABLET PO SCH ×2 (08:44→21:26)
[2016-02-12] MEDS: NYSTATIN 15 APPL BTL TP SCH ×2 (08:44→21:27)
[2016-02-12] MEDS: ESCITALOPRAM OXALATE 10 MG TAB PO SCH (08:44)
[2016-02-12] MEDS: AZITHROMYCIN 500 MG in DEXTROSE 5 % IN WATER 250 ML IV SCH ×2 (09:58)
[2016-02-12] MEDS: ENOXAPARIN SODIUM 40 MG/0.4 ML SYRG SC SCH (17:08)
[2016-02-12] MEDS: ACETAMINOPHEN 500 MG TABLET PO PRN (18:53)
--- NOTE | 2016-02-12 21:10 | PN ---
Subjective - Date and Time Seen Date: 02/12/16 Time: 07:00 Subjective Narrative: Less somnolent. Poor historian. Calcium normalized. Na high. K low. [place] level is normal. WBC is a little lower. Objective - Review of Systems Generalized/Overall Review: Reports: Malaise EENTM: Reports: No Symptoms Reported Respiratory: Reports: No Symptoms Reported Cardiac: Reports: No Symptoms Reported Abdominal: Reports: No Symptoms Reported Genitourinary Symptoms: Reports: No Symptoms Reported Musculoskeletal Complaints: Reports: No Symptoms Reported Neurological: Reports: No Symptoms Reported Skin: Reports: No Symptoms Reported Endocrine: Reports: No Symptoms Reported Misc: All systems neg except as marked - Vitals Vitals: Last Vital Signs Selected Entries 02/12/16 06:00 Temperature 36.7 C Temperature Oral Source Pulse Rate 73 Respiratory 20 Rate Blood Pressure 176/79 Blood Pressure Sitting Position O2 Sat by Pulse 97 Oximetry Oxygen Delivery Room Air Method - Abnormal Lab Findings Abnormal Lab Findings: Abnormal Lab Results 02/12/16 02/12/16 Range/Units 04:50 04:50 WBC 12.0 H (4.0-10.5) K/mm3 RBC 3.81 L (4.2-5.4) M/mm3 MCH 33.1 H (27-31) pg MPV 11.6 H (6.0-9.5) fl Eosinophils % 3.9 H (0.0-3.0) % Neutrophils # 7.5 H (1.3-6.0) K/mm3 Sodium 146 H (132-142) mmol/L Plasma Sodium 146 H (130-142) mmol/L Potassium 3.3 L (3.4-4.6) mmol/L Chloride 111 H (97-106) mmol/L BUN/Creatinine Ratio 3.4 L (9.0-21.6) Random Glucose 123 H (70-110) mg/dL - Exam Constitutional: Present: Somnolent ENT Exam: Present: normal ENT inspection Neck: Present: normal inspection Respiratory: Present: lungs clear, no respiratory distress Cardiovascular/Chest: Present: regular rate, rhythm, no murmur Abdomen: Present: Normal bowel sounds, soft, nontender, nondistended, no rebound tenderness, no hepatospenomegaly, no masses Extremity: Present: lower extremity edema Skin Exam: Present: normal color, warm/dry, no cyanosis Appearance: Present: appropriate appearance Thoughts: Present: incoherent Cauti Physician Documentation - Urinary Catheter Management Urethral ([place]) Date of Insertion: 02/09/16 Time of Insertion: 10:44 Assessment/Plan Plan Narrative: IV fluid and electrolyte management. Continue IV antibiotics. Minimize meds. Follow labs. Estimate hospital another week or so. - Problems/Diagnosis (1) Hypercalcemia Problem: Resolved (2) Sinusitis Problem: Acute Qualifiers: Sinusitis location: sphenoidal Chronicity: acute Recurrence: non- recurrent Qualified Code(s): J01.30 - Acute sphenoidal sinusitis, unspecified (3) Bronchitis Problem: Acute (4) Burn Problem: Acute (5) Multiple sclerosis Problem: Chronic (6) Parkinsons Problem: Chronic (7) Bipolar 1 disorder Problem: Chronic (8) Altered mental status Problem: Resolved Qualifiers: Altered mental status type: stupor Qualified Code(s): R40.1 - Stupor (9) Tobacco abuse Problem: Chronic (10) Hypernatremia Problem: Acute (11) Acute hypokalemia Problem: Acute
[2016-02-12] MEDS: clonazePAM 1 MG TABLET PO SCH (21:26)
[2016-02-12] MEDS ORDERED: clonazePAM 1 MG TABLET PO ONE (22:50)
[2016-02-13] MEDS: ACETAMINOPHEN 500 MG TABLET PO PRN ×4 (02:43→23:53)
[2016-02-13 05:59] LABS: Hemoglobin 12.8 gm/dL (12.5-16.0); Mean Cell Volume 97.9 fl (78-100); Mean Corpuscular Hgb Conc 33.7 g/dl (32-36); Mean Platelet Volume 10.9 fl (6.0-9.5); Neutrophil # 5.6 K/mm3 (1.3-6.0); Neutrophil % 53.3 % (42-75.0); Platelet Count 226 K/mm3 (150-450); Red Blood Count 3.88 M/mm3 (4.2-5.4); Red Cell Distribution Width 12.6 % (11.5-14.0); White Blood Count 10.4 K/mm3 (4.0-10.5)
[2016-02-13 06:30] LABS: Anion Gap 13.2 mmol/L (6.8-13.8); BUN/Creatinine Ratio 3.4 (9.0-21.6); Carbon Dioxide 24.1 mmol/L (24-32.6); Estimated Creat Clear 61.1; Potassium 3.3 mmol/L (3.4-4.6)
[2016-02-13] MEDS: DEXTROSE 5%-0.2 NORMAL SALINE 1,000 ML IV PRN (07:47)
[2016-02-13] MEDS: BACITRACIN ZINC 30 APPL TUBE TP SCH ×2 (08:31→20:41)
[2016-02-13] MEDS: CALCIUM POLYCARBOPHIL 625 MG TABLET PO SCH (08:32)
[2016-02-13] MEDS: COPAXONE 20 MG SQ SCH (08:32)
[2016-02-13] MEDS: POTASSIUM CHLORIDE 10 MEQ TABLET.SA PO SCH ×2 (08:33→17:19)
[2016-02-13] MEDS: ESCITALOPRAM OXALATE 10 MG TAB PO SCH (08:33)
[2016-02-13] MEDS: MULTIVITAMINS 1 CAP CAPSULE PO SCH (08:34)
[2016-02-13] MEDS: NYSTATIN 15 APPL BTL TP SCH ×2 (08:34→20:42)
[2016-02-13] MEDS: ENALAPRIL MALEATE 20 MG TABLET PO SCH ×2 (08:35→20:42)
[2016-02-13] MEDS: AZITHROMYCIN 500 MG in DEXTROSE 5 % IN WATER 250 ML IV SCH ×2 (10:04)
[2016-02-13] MEDS: traMADol HCL 50 MG TABLET PO PRN ×2 (10:25→20:43)
--- NOTE | 2016-02-13 10:37 | PN ---
Subjective - Date and Time Seen Date: 02/13/16 Time: 10:29 Subjective Narrative: Patient seen today no acute distress, pt stated he lower back was painful and pain reproducible with palpation. While at home she use medications for the discomfort, but right now she just want to sleep. Per nurse urine to matias cath clear yellow. Objective - Review of Systems Generalized/Overall Review: Reports: No Symptoms Reported EENTM: Reports: No Symptoms Reported Respiratory: Reports: No Symptoms Reported Cardiac: Reports: No Symptoms Reported Abdominal: Reports: No Symptoms Reported Genitourinary Symptoms: Reports: No Symptoms Reported Musculoskeletal Complaints: Reports: Back Pain - lower back pain Neurological: Reports: No Symptoms Reported Skin: Reports: Dryness Endocrine: Reports: No Symptoms Reported - Vitals Vitals: Last Vital Signs Temp 36.9 C 02/13/16 10:27 Pulse 70 02/13/16 10:27 Resp 20 02/13/16 10:27 BP 160/61 02/13/16 10:27 Pulse Ox 95 02/13/16 10:27 - Abnormal Lab Findings Abnormal Lab Findings: Abnormal Lab Results 02/13/16 02/13/16 Range/Units 05:50 05:50 RBC 3.88 L (4.2-5.4) M/mm3 MCH 33.0 H (27-31) pg MPV 10.9 H (6.0-9.5) fl Eosinophils % 3.7 H (0.0-3.0) % Lymphocytes # 3.7 H (1.5-3.5) k/mm3 Sodium 145 H (132-142) mmol/L Plasma Sodium 145 H (130-142) mmol/L Potassium 3.3 L (3.4-4.6) mmol/L Chloride 111 H (97-106) mmol/L BUN/Creatinine Ratio 3.4 L (9.0-21.6) Random Glucose 119 H (70-110) mg/dL - Exam Constitutional: Present: Alert, Cooperative, Elderly, Obese Neck: Present: full range of motion Breasts: Present: Exam deferred Respiratory: Present: chest non-tender, lungs clear, normal breath sounds, no respiratory distress Cardiovascular/Chest: Present: normal peripheral pulses, regular rate, rhythm, no chest tenderness, no edema Abdomen: Present: Normal bowel sounds, soft, nontender, nondistended, no rebound tenderness /Rectal: Present: Other - Matias cath clear yellow urine Skin Exam: Present: cool/dry Lymphatic: Present: no adenopathy Eye contact: Present: good eye contact Thoughts: Present: no apparent hallucination Cauti Physician Documentation - Urinary Catheter Management Urethral (Matias) Date of Insertion: 02/09/16 Time of Insertion: 10:44 Date of Removal: 02/13/16 Time of Removal: 10:15 Assessment/Plan Plan Narrative: Lower back pain Likely muscular-skeletal, pain reproducible with movement and palpation Tramadol PRN Sinusitis CT head no acute intracranial abnormality, incidental findings sinusitis. on adm WBC14.6----->15.1----->13.4---->10.4 today stable Acute sphenoidal sinusitis, unspecified continue with antibiotics Bronchitis Problem: Acute Burn Reports of cigarette accidentally falling on pt continue with use of Bacitracin Multiple sclerosis Chronic continue with copaxone edema to hands and feet likely due to copaxone side effect. continue with PT/OT evaluation and treatment. Parkinsons Chronic Bipolar 1 disorder Chronic lithium level still pending, its a send out lab. Altered mental status Problem: Acute Qualifiers: Altered mental status type: stupor Qualified Code(s): R40.1 - Stupor Tobacco abuse Chronic smoking cessation unable to educated at current time due to motivation and medical status. Hypernatremia Problem: Acute DC IVF and encourage free fluids intake Low sodium diet monitor BMP in am Acute hypokalemia resolved Hypercalcemia Resolved Hematuria with urinary retention KUB Reviewed Urine culture no growth DC Matias cath and bladder scan post-initial void Hematuria- resolved Matias with clear yellow urine - Problems/Diagnosis (1) Hypercalcemia Problem: Resolved (2) Multiple sclerosis Problem: Chronic (3) Hypernatremia Problem: Acute (4) Acute urinary retention Problem: Acute (5) Hematuria Problem: Resolved
[2016-02-13] MEDS ORDERED: POTASSIUM CHLORIDE 20 MEQ TABLET.SA PO ONE (10:43)
[2016-02-13] MEDS ORDERED: HALOPERIDOL 1 MG TABLET PO PRN (14:01)
[2016-02-13] MEDS ORDERED: HALOPERIDOL 1 MG TABLET PO ONE (15:02)
[2016-02-13] MEDS ORDERED: ZIPRASIDONE HCL 40 MG CAPSULE PO ONE (15:10)
[2016-02-13] MEDS: ENOXAPARIN SODIUM 40 MG/0.4 ML SYRG SC SCH (17:18)
[2016-02-13] MEDS: lamoTRIgine 100 MG TABLET PO SCH (17:18)
[2016-02-13] MEDS: LITHIUM CARBONATE 150 MG CAPSULE PO SCH (20:41)
[2016-02-13] MEDS: clonazePAM 1 MG TABLET PO SCH (20:41)
[2016-02-13] MEDS ORDERED: ZIPRASIDONE HCL 40 MG CAPSULE PO SCH (21:00)
[2016-02-14 06:31] LABS: BUN/Creatinine Ratio 5.9 (9.0-21.6); Calcium * 8.2 mg/dL (7.9-10.9); Carbon Dioxide 26.4 mmol/L (24-32.6); Estimated Creat Clear 62.5; Potassium 3.4 mmol/L (3.4-4.6)
[2016-02-14] MEDS: POTASSIUM CHLORIDE 10 MEQ in DEXTROSE 5 % IN WATER 1,000 ML IV SCH ×4 (09:35→20:02)
[2016-02-14] MEDS: ENALAPRIL MALEATE 20 MG TABLET PO SCH ×2 (09:36→20:04)
[2016-02-14] MEDS: BACITRACIN ZINC 30 APPL TUBE TP SCH ×2 (09:36→20:02)
[2016-02-14] MEDS: LITHIUM CARBONATE 150 MG CAPSULE PO SCH ×2 (09:36→20:03)
[2016-02-14] MEDS: ESCITALOPRAM OXALATE 10 MG TAB PO SCH (09:37)
[2016-02-14] MEDS: POTASSIUM CHLORIDE 10 MEQ TABLET.SA PO SCH ×2 (09:38→17:50)
[2016-02-14] MEDS: COPAXONE 20 MG SQ SCH (09:38)
[2016-02-14] MEDS: CALCIUM POLYCARBOPHIL 625 MG TABLET PO SCH (09:38)
[2016-02-14] MEDS: MULTIVITAMINS 1 CAP CAPSULE PO SCH (09:39)
[2016-02-14] MEDS: NYSTATIN 15 APPL BTL TP SCH ×2 (09:39→20:03)
[2016-02-14] MEDS: AZITHROMYCIN 500 MG in DEXTROSE 5 % IN WATER 250 ML IV SCH ×2 (10:56)
[2016-02-14] MEDS: lamoTRIgine 100 MG TABLET PO SCH (17:50)
[2016-02-14] MEDS: ENOXAPARIN SODIUM 40 MG/0.4 ML SYRG SC SCH (17:51)
--- NOTE | 2016-02-14 19:04 | PN ---
Subjective - Date and Time Seen Date: 02/14/16 Time: 19:01 Subjective Narrative: Less somnolent. Poor historian. Calcium normalized. Na high. Urinary retention due to MS. Objective - Review of Systems Generalized/Overall Review: Reports: Weakness, Malaise - poor historian EENTM: Reports: No Symptoms Reported Respiratory: Reports: No Symptoms Reported Cardiac: Reports: No Symptoms Reported Abdominal: Reports: No Symptoms Reported Genitourinary Symptoms: Reports: No Symptoms Reported Musculoskeletal Complaints: Reports: No Symptoms Reported Neurological: Reports: No Symptoms Reported Skin: Reports: No Symptoms Reported Endocrine: Reports: No Symptoms Reported Misc: All systems neg except as marked - Vitals Vitals: Last Vital Signs Selected Entries 02/14/16 15:10 Temperature 36.4 C L Temperature Oral Source Pulse Rate 75 Respiratory 16 Rate Blood Pressure 164/67 Blood Pressure Supine Position O2 Sat by Pulse 94 Oximetry Oxygen Delivery Room Air Method - Abnormal Lab Findings Abnormal Lab Findings: Abnormal Lab Results 02/14/16 Range/Units 06:07 Sodium 145 H (132-142) mmol/L Plasma Sodium 145 H (130-142) mmol/L Chloride 112 H (97-106) mmol/L BUN/Creatinine Ratio 5.9 L (9.0-21.6) - Exam Constitutional: Present: Alert, Well developed, Morbidly obese ENT Exam: Present: normal ENT inspection Neck: Present: normal inspection Respiratory: Present: lungs clear, no respiratory distress Cardiovascular/Chest: Present: regular rate, rhythm, no murmur Abdomen: Present: Normal bowel sounds, soft, nontender, nondistended, no rebound tenderness, no hepatospenomegaly, no masses, obese Extremity: Present: non-tender, pedal edema Neurologic: Present: other Appearance: Present: appropriate appearance, neat Eye contact: Present: avoids eye contact Cauti Physician Documentation - Urinary Catheter Management Urethral (Matias) Date of Insertion: 02/14/16 Time of Insertion: 14:40 Date of Removal: 02/13/16 Time of Removal: 10:15 Assessment/Plan Plan Narrative: Follow labs. matias for urinary retention. Minimize meds. Home or NH end of week. - Problems/Diagnosis (1) Hypercalcemia Problem: Resolved (2) Sinusitis Problem: Acute Qualifiers: Sinusitis location: sphenoidal Chronicity: acute Recurrence: non- recurrent Qualified Code(s): J01.30 - Acute sphenoidal sinusitis, unspecified (3) Bronchitis Problem: Acute (4) Burn Problem: Acute (5) Multiple sclerosis Problem: Chronic (6) Parkinsons Problem: Chronic (7) Bipolar 1 disorder Problem: Chronic (8) Altered mental status Problem: Resolved Qualifiers: Altered mental status type: stupor Qualified Code(s): R40.1 - Stupor (9) Tobacco abuse Problem: Chronic (10) Hypernatremia Problem: Acute (11) Acute hypokalemia Problem: Acute (12) Urinary retention Problem: Chronic
[2016-02-14] MEDS: clonazePAM 1 MG TABLET PO SCH (20:03)
[2016-02-14] MEDS: ZIPRASIDONE HCL 40 MG CAPSULE PO SCH (20:03)
[2016-02-15] MEDS: POTASSIUM CHLORIDE 10 MEQ in DEXTROSE 5 % IN WATER 1,000 ML IV SCH ×8 (04:56→21:37)
[2016-02-15 05:32] LABS: Hematocrit 40.1 % (37.0-47.0); Hemoglobin 13.3 gm/dL (12.5-16.0); Mean Cell Volume 98.3 fl (78-100); Mean Corpuscular Hemoglobin 32.6 pg (27-31); Mean Corpuscular Hgb Conc 33.2 g/dl (32-36); Mean Platelet Volume 10.7 fl (6.0-9.5); Neutrophil # 5.3 K/mm3 (1.3-6.0); Neutrophil % 52.5 % (42-75.0); Platelet Count 262 K/mm3 (150-450); Red Blood Count 4.08 M/mm3 (4.2-5.4); Red Cell Distribution Width 12.9 % (11.5-14.0)
[2016-02-15 05:42] LABS: Anion Gap 14.1 mmol/L (6.8-13.8); BUN/Creatinine Ratio 7.1 (9.0-21.6); Carbon Dioxide 23.6 mmol/L (24-32.6); Estimated Creat Clear 62.5; Potassium 3.7 mmol/L (3.4-4.6)
--- NOTE | 2016-02-15 09:04 | PN ---
Subjective - Date and Time Seen Date: 02/15/16 Time: 07:20 Subjective Narrative: Two days ago, nurse practitioner started tramadol for pain and prn haldol for behaviors. Yesterday, the oncall doctor added Valerie. More sedated now, confused and still with behaviors, though muted. I don't think Lexapro is helping, and we will stop it for that reason. I think tramadol is making her mentation worse, and we should, as much as possible, avoid narcotics. I think at this point a psychiatry consult is waranted. I am not yet convinced she is safe to return home. Objective - Review of Systems Generalized/Overall Review: Reports: No Symptoms Reported - poor historian due to mental status. - Vitals Vitals: Last Vital Signs Selected Entries 02/15/16 02:32 Temperature 36.6 C Temperature Oral Source Pulse Rate 62 Respiratory 12 Rate Respiratory Normal Depth Blood Pressure 181/56 Blood Pressure Supine Position O2 Sat by Pulse 97 Oximetry Oxygen Delivery Room Air Method - Abnormal Lab Findings Abnormal Lab Findings: Abnormal Lab Results 02/15/16 02/15/16 Range/Units 05:10 05:10 RBC 4.08 L (4.2-5.4) M/mm3 MCH 32.6 H (27-31) pg MPV 10.7 H (6.0-9.5) fl Eosinophils % 3.1 H (0.0-3.0) % Lymphocytes # 3.8 H (1.5-3.5) k/mm3 Sodium 145 H (132-142) mmol/L Plasma Sodium 145 H (130-142) mmol/L Chloride 111 H (97-106) mmol/L Carbon Dioxide 23.6 L (24-32.6) mmol/L Anion Gap 14.1 H (6.8-13.8) mmol/L BUN/Creatinine Ratio 7.1 L (9.0-21.6) Random Glucose 126 H D (70-110) mg/dL - Exam Constitutional: Present: Well developed, Somnolent, Morbidly obese ENT Exam: Present: normal ENT inspection Neck: Present: normal inspection Respiratory: Present: lungs clear, no respiratory distress Cardiovascular/Chest: Present: regular rate, rhythm, no murmur Abdomen: Present: Normal bowel sounds, soft, nontender, nondistended, no rebound tenderness, no hepatospenomegaly, no masses, obese Extremity: Present: pedal edema Skin Exam: Present: normal color, warm/dry, no cyanosis Neurologic: Present: EOM palsy Appearance: Present: appropriate appearance, neat Eye contact: Present: decreased rate of speech Cauti Physician Documentation - Urinary Catheter Management Urethral ([place]) Date of Insertion: 02/14/16 Time of Insertion: 14:40 Date of Removal: 02/13/16 Time of Removal: 10:15 Assessment/Plan Plan Narrative: Hypernatremia persist. Will increase D5W infusion. Stop Lexapro and tramadol. Follow labs. Psych consult. Continue IV antibiotics. - Problems/Diagnosis (1) Hypercalcemia Problem: Resolved (2) Sinusitis Problem: Acute Qualifiers: Sinusitis location: sphenoidal Chronicity: acute Recurrence: non- recurrent Qualified Code(s): J01.30 - Acute sphenoidal sinusitis, unspecified (3) Bronchitis Problem: Acute (4) Burn Problem: Acute (5) Multiple sclerosis Problem: Chronic (6) Parkinsons Problem: Chronic (7) Bipolar 1 disorder Problem: Chronic (8) Altered mental status Problem: Resolved Qualifiers: Altered mental status type: stupor Qualified Code(s): R40.1 - Stupor (9) Tobacco abuse Problem: Chronic (10) Hypernatremia Problem: Acute (11) Acute hypokalemia Problem: Acute (12) Urinary retention Problem: Chronic
[2016-02-15] MEDS: LITHIUM CARBONATE 150 MG CAPSULE PO SCH (09:26)
[2016-02-15] MEDS: BACITRACIN ZINC 30 APPL TUBE TP SCH ×2 (09:26→20:14)
[2016-02-15] MEDS: CALCIUM POLYCARBOPHIL 625 MG TABLET PO SCH (09:27)
[2016-02-15] MEDS: MULTIVITAMINS 1 CAP CAPSULE PO SCH (09:27)
[2016-02-15] MEDS: POTASSIUM CHLORIDE 10 MEQ TABLET.SA PO SCH ×2 (09:27→17:12)
[2016-02-15] MEDS: NYSTATIN 15 APPL BTL TP SCH ×2 (09:28→20:15)
[2016-02-15] MEDS: COPAXONE 20 MG SQ SCH (09:29)
[2016-02-15] MEDS: ENALAPRIL MALEATE 20 MG TABLET PO SCH ×2 (09:32→20:15)
[2016-02-15] MEDS: AZITHROMYCIN 500 MG in DEXTROSE 5 % IN WATER 250 ML IV SCH ×2 (10:24)
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
[2016-02-15] MEDS: lamoTRIgine 100 MG TABLET PO SCH (17:12)
[2016-02-15] MEDS: ENOXAPARIN SODIUM 40 MG/0.4 ML SYRG SC SCH (17:16)
[2016-02-15] MEDS: clonazePAM 1 MG TABLET PO SCH (20:14)
[2016-02-15] MEDS: ZIPRASIDONE HCL 40 MG CAPSULE PO SCH (20:15)
[2016-02-16] MEDS: POTASSIUM CHLORIDE 10 MEQ in DEXTROSE 5 % IN WATER 1,000 ML IV SCH ×8 (04:26→20:07)
[2016-02-16 06:04] LABS: Hematocrit 41.7 % (37.0-47.0); Hemoglobin 13.6 gm/dL (12.5-16.0); Mean Corpuscular Hemoglobin 32.9 pg (27-31); Mean Corpuscular Hgb Conc 32.6 g/dl (32-36); Mean Platelet Volume 10.6 fl (6.0-9.5); Neutrophil # 5.2 K/mm3 (1.3-6.0); Neutrophil % 53.3 % (42-75.0); Platelet Count 271 K/mm3 (150-450); Red Blood Count 4.13 M/mm3 (4.2-5.4); Red Cell Distribution Width 13.2 % (11.5-14.0); White Blood Count 9.8 K/mm3 (4.0-10.5)
[2016-02-16 06:15] LABS: BUN/Creatinine Ratio 6.6 (9.0-21.6); Calcium * 9.2 mg/dL (7.9-10.9); Carbon Dioxide 22.4 mmol/L (24-32.6); Estimated Creat Clear 58.4; Potassium 4.4 mmol/L (3.4-4.6)
[2016-02-16] MEDS: BACITRACIN ZINC 30 APPL TUBE TP SCH ×2 (08:28→20:43)
[2016-02-16] MEDS: COPAXONE 20 MG SQ SCH (08:29)
[2016-02-16] MEDS: MULTIVITAMINS 1 CAP CAPSULE PO SCH (08:29)
[2016-02-16] MEDS: NYSTATIN 15 APPL BTL TP SCH ×2 (08:29→20:43)
[2016-02-16] MEDS: CALCIUM POLYCARBOPHIL 625 MG TABLET PO SCH (08:29)
[2016-02-16] MEDS: ENALAPRIL MALEATE 20 MG TABLET PO SCH ×2 (08:29→20:43)
[2016-02-16] MEDS: AZITHROMYCIN 500 MG in DEXTROSE 5 % IN WATER 250 ML IV SCH ×2 (09:42)
[2016-02-16] MEDS: lamoTRIgine 100 MG TABLET PO SCH (16:37)
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
[2016-02-16] MEDS: ENOXAPARIN SODIUM 40 MG/0.4 ML SYRG SC SCH (17:38)
[2016-02-16] MEDS: clonazePAM 1 MG TABLET PO SCH (20:42)
[2016-02-16] MEDS: ZIPRASIDONE HCL 40 MG CAPSULE PO SCH (20:42)
[2016-02-16] MEDS: ACETAMINOPHEN 500 MG TABLET PO PRN (23:37)
[2016-02-17 06:16] LABS: Anion Gap 13.4 mmol/L (6.8-13.8); BUN/Creatinine Ratio 11.3 (9.0-21.6); Calcium * 9.2 mg/dL (7.9-10.9); Carbon Dioxide 23.9 mmol/L (24-32.6); Estimated Creat Clear 54.8; Potassium 4.3 mmol/L (3.4-4.6)
[2016-02-17 06:53] VITALS: BP 151/70
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
[2016-02-17] MEDS: BACITRACIN ZINC 30 APPL TUBE TP SCH (08:56)
[2016-02-17] MEDS: COPAXONE 20 MG SQ SCH (08:57)
[2016-02-17] MEDS: MULTIVITAMINS 1 CAP CAPSULE PO SCH (08:57)
[2016-02-17] MEDS: CALCIUM POLYCARBOPHIL 625 MG TABLET PO SCH (08:57)
[2016-02-17] MEDS: NYSTATIN 15 APPL BTL TP SCH (08:57)
[2016-02-17] MEDS: AZITHROMYCIN 500 MG in DEXTROSE 5 % IN WATER 250 ML IV SCH ×2 (08:58)
[2016-02-17] MEDS: ENALAPRIL MALEATE 20 MG TABLET PO SCH (08:58)
== END 2016-02-17 11:00 | disposition home or self-care (01) | DRG 202 ==
LOC: ER 13:33 → MS 17:08 → OBSVTOIN 17:55
PROVIDERS: ADMIT Allergy & Immunology; ATTEND Allergy & Immunology
DX: J20.9 Acute bronchitis, unspecified (principal); F02.81 Dementia in other diseases classified elsewhere, unspecified severity, with behavioral disturbance; F31.89 Other bipolar disorder; E87.0 Hyperosmolality and hypernatremia; J01.30 Acute sphenoidal sinusitis, unspecified; E87.6 Hypokalemia; G35 Multiple sclerosis; G20 Parkinson's disease; F17.210 Nicotine dependence, cigarettes, uncomplicated; R33.9 Retention of urine, unspecified

== ENCOUNTER 2016-09-27 06:25 | Emergency (ER) | payer OTHER ==
--- NOTE | 2016-09-27 07:09 | ERNOTE ---
Dizziness ER Record Presenting Symptoms: dizziness Time Seen by Provider: 09/27/16 06:58 Source: patient Exam Limitations: clinical condition Immunizations: IMMUNIZATION HX Immunizations Up to Date Yes History of Influenza Vaccine Yes Hx Pneumococcal Vaccination Yes Allergies/Adverse Reactions: Allergies Allergy/AdvReac Type Severity Reaction Status Date / Time Penicillins AdvReac Intermediate "body Verified 09/27/16 06:43 puffed up" topiramate [From Topamax] AdvReac Intermediate hallucinations, Verified 06:43 altering of mood gabapentin AdvReac Mild PETE LOWER Verified 09/27/16 06:43 EXTREMITY WEAKNESS, NAUSEA latex AdvReac Mild rash Verified 09/27/16 06:43 levofloxacin [From Levaquin] AdvReac Mild Vomiting Verified 09/27/16 06:43 senna AdvReac Mild Diarrhea Verified 09/27/16 06:43 Sulfa (Sulfonamide AdvReac Mild rash Verified 09/27/16 06:43 Antibiotics) [Sulfa(Sulfonamide Antibiotics)] Home Medications: HOME MEDICATIONS Acetaminophen [Tylenol] 1,000 mg PO Q6H PRN 06/24/14 [Last Taken Unknown] Multivitamins [Multivitamin Junior] 1 cap PO DAILY 06/24/14 [Last Taken Unknown] Polyethylene Glycol 3350 [Miralax] 17 gm PO DAILY PRN 06/24/14 [Last Taken Unknown] Calcium Carbonate [[id number]] 500 mg PO TID 11/22/15 [Last Taken Unknown] Cholecalciferol (Vitamin D3) [Vitamin D3] 2,000 unit PO DAILY 11/22/15 [Last Taken Unknown] Glatiramer Acetate [Copaxone] 20 mg SQ DAILY 02/08/16 [Last Taken Unknown] Enalapril Maleate [Vasotec] 20 mg PO BID #60 tablet 02/17/16 [Last Taken Unknown ] Nystatin [Mycostatin Powder] 1 appl TP BID #1 btl 02/17/16 [Last Taken Unknown] Ziprasidone HCl [Geodon] 2 cap PO HS #60 capsule 02/17/16 [Last Taken Unknown] clonazePAM [Klonopin] 1 mg PO HS #30 tablet 02/17/16 [Last Taken Unknown] lamoTRIgine [Lamictal] 200 mg PO QPM@1700 #30 tablet 02/17/16 [Last Taken Unknown] Nitrofurantoin Macrocrystal [Nitrofurantoin] 100 mg PO BID #10 capsule 09/27/16 [Last Taken Unknown] - History of Present Illness Narrative: Pt states she woke up at 01:00 with dizziness and feeling hot on the inside and cold on the outside. Timing and Duration: sudden onset Noted on awakening:: Yes Severity: max: moderate Severity: currently: moderate Associated Symptoms: Present: weakness. Absent: vomiting, sweating Sense of movement: Present: spinning Decreased ability to stand/walk:: Present: weak Modifying Factors - (Improves): Reports: nothing Review of Systems - Review of Systems Constitutional: Present: weakness, fatigue. Absent: recent illness EYE: Absent: vision changes ENT: Present: no symptoms reported Respiratory: Present: shortness of breath, cough Cardiology: Absent: chest pain Gastrointestinal/Abdominal: Present: nausea. Absent: vomiting Genitourinary: Present: pain - bladder- intermittently Musculoskeletal: Present: no symptoms reported Skin: Present: no symptoms reported Neurological: Present: See HPI, dizziness/light-headedness Endocrine: Present: intolerance to heat Hematologic/Lymphatic: Present: no symptoms reported Psych: Present: no symptoms reported - Patient's Past Medical History Patient History - Medical: Arthritis Patient History - Cardiac/Respiratory: No pertinent hx Patient History - Cancer: Skin Patient History - Surgical Procedures: Cancer Surgery, Hysterectomy Patient History - Other: None LMP (females 10-50): Menopausal - Family History Mother Family History - Medical: Family History - Cardiac/Respiratory: CHF Father Family History - Medical: Other Family History - Cardiac/Respiratory: No pertinent hx - Social History Living Situations: spouse Abuse History: No History of abuse Psych History: Hx of Depression, Hx of Bipolar Disorder Have you smoked in the past 12 months: Yes Alcohol Use: none Drug Use: none - Immunizations Immunizations Up to Date: Yes Hx Pneumococcal Vaccination: Yes History of Influenza Vaccine: Yes Physical Exam - Physical Exam General Appearance: Present: wd/wn, alert, no apparent distress Head Exam: Present: normal inspection, no evidence of injury Eye Exam: Normal inspection: bilateral Ears, Nose, Throat: Present: normal ENT inspection Neck: Present: normal inspection, nontender Respiratory: Present: no respiratory distress, no accessory muscle use, lungs clear Cardiovascular/Chest: Present: regular rate, rhythm, no murmur, normal peripheral pulses Gastrointestinal/Abdominal: Present: normal bowel sounds, nontender Back Exam: Present: normal inspection, normal range of motion Extremity Exam: Present: normal inspection, normal range of motion, no edema Neurological Exam: Present: alert, oriented Skin Exam: Present: normal color, warm/dry Lymphatic Exam: Present: no adenopathy ED Progress - Results and Orders Patient's Lab Results:: I have reviewed the patient's lab results. Results and Orders: Laboratory Tests 09/27/16 09/27/16 09/27/16 07:10 07:10 07:12 WBC 11.3 H Hgb 14.8 Hct 44.3 Plt Count 236 Sodium 141 Potassium 4.4 Chloride 106 Carbon Dioxide 25.5 Anion Gap 13.9 H BUN 10 Creatinine 0.92 Random Glucose 110 Calcium 9.9 Total Bilirubin 0.4 AST 13 ALT 23 Alkaline Phosphatase 95 Total Protein 7.2 Albumin 3.6 Urine Color Yellow Urine Appearance Slightly cloudy Urine pH 6.0 Ur Specific Central <=1.005 Urine Protein Negative Urine Glucose (UA) Negative Urine Ketones Negative Urine Blood 10 H Urine Nitrate Positive H Urine Bilirubin Negative Urine Urobilinogen Normal Ur Leukocyte Esterase 500 H Urine RBC 0-5 Urine WBC 5-10 H Ur Epithelial Cells Trace Ur Renal Epithelial Cell Few - 1+ H Calcium Oxalate Crystal Few - 1+ H Urine Bacteria 3+ H Urine Mucus Few - 1+ H Urine Culture Comments Culture to follow - Vital Signs Patient's Vital Signs:: I have reviewed the patient's vital signs. Vital Signs: Vital Signs 09/27/16 06:29 Pulse Rate 102 H Respiratory 27 H Rate Blood Pressure 158/80 O2 Sat by Pulse 95 Oximetry - X-Ray X-Ray #1 X-Ray: chest Interpretation: Reviewed by me X-ray Comments: nothing acute - Progress/Reassessment Chief Complaint: Dizziness Departure Clinical Impression: UTI (urinary tract infection) Qualifiers: Urinary tract infection type: catheter-associated UTI Indwelling urinary catheter type: indwelling urethral catheter Encounter type: initial encounter Qualified Code(s): T83.511A - Infection and inflammatory reaction due to indwelling urethral catheter, initial encounter - Departure Disposition: Home Follow Up Needed Condition: Good Instructions: Pyelonephritis, Adult, [id number] Additional Instructions: See Dr. Cruz in the next 5-7 days. Referrals: Robert Christina MD [Primary Care Provider] - Prescriptions: Nitrofurantoin Macrocrystal [Nitrofurantoin] 100 mg PO BID #10 capsule
[2016-09-27 07:20] LABS: Hematocrit 44.3 % (37.0-47.0); Hemoglobin 14.8 gm/dL (12.5-16.0); Mean Cell Volume 96.7 fl (78-100); Mean Corpuscular Hemoglobin 32.3 pg (27-31); Mean Corpuscular Hgb Conc 33.4 g/dl (32-36); Mean Platelet Volume 9.6 fl (6.0-9.5); Neutrophil # 8.1 K/mm3 (1.3-6.0); Neutrophil % 72.1 % (42-75.0); Platelet Count 236 K/mm3 (150-450); Red Blood Count 4.58 M/mm3 (4.2-5.4); Red Cell Distribution Width 13.2 % (11.5-14.0); White Blood Count 11.3 K/mm3 (4.0-10.5)
[2016-09-27 07:21] LABS: Urine Bilirubin Negative (NEGATIVE); Urine Blood 10 /ul (NEGATIVE); Urine Ketone Negative (NEGATIVE); Urine Protein Negative (NEGATIVE); Urine Specific Gravity <=1.005 SP.GR. (1.005-1.010); Urine Urobilinogen Normal (NORMAL)
[2016-09-27 07:22] LABS: Urine Appearance Slightly Cloudy; Urine Bacteria 3+; Urine Color Yellow; Urine Mucus Few - 1+; Urine Nitrite Positive (NEGATIVE); Urine RBC 0-5 /hpf (0-5); Urine Renal Epithelial Cell Few - 1+ /hpf
[2016-09-27 07:34] LABS: Albumin * 3.6 gm/dl (3.4-5.0); Anion Gap 13.9 mmol/L (6.8-13.8); BUN/Creatinine Ratio 10.9 (9.0-21.6); Bilirubin, Total 0.4 mg/dL (0.0-1.1); Ca. Corrected For Albumin 9.9 mg/dL (8.4-10.2); Calcium * 9.9 mg/dL (7.9-10.9); Carbon Dioxide 25.5 mmol/L (24-32.6); Potassium 4.4 mmol/L (3.4-4.6); Total Protein 7.2 gm/dL (6.2-8.2)
[2016-09-27] MEDS ORDERED: NITROFURANTOIN/NITROFURAN MAC 100 MG CAPSULE PO SCH (08:00)
[2016-09-27] MEDS ORDERED: NITROFURANTOIN/NITROFURAN MAC 100 MG CAPSULE ONE (08:05)
[2016-09-27 08:13] VITALS: BP 154/67
== END 2016-09-27 08:13 | disposition home or self-care (01) ==
LOC: ER 06:25
DX: N39.0 Urinary tract infection, site not specified (principal); T83.511A Infection and inflammatory reaction due to indwelling urethral catheter, initial encounter; Z85.828 Personal history of other malignant neoplasm of skin

== ENCOUNTER 2017-01-07 14:45 | Day surgery (SDC) | payer OTHER ==
[~2017-01-07 14:45] MED LIST: ACETAMINOPHEN 325 MG TABLET PO PRN; ACETYLCHOLINE CHLORIDE 20 DROP KIT IO PRN; BUPIVACAINE HCL/PF 30 ML VIAL IJ PRN; CYCLOPENTOLATE HCL 20 DROP BTL LEFTEYE PRN; DEXTROSE 5%-0.5 NORMAL SALINE 1,000 ML IV PRN; EPINEPHrine 1 MG/ML AMPUL IO PRN; HYALURONATE SODIUM 0.4 ML DISP.SYRIN IO PRN; HYALURONATE SODIUM 0.85 ML DISP.SYRIN IO PRN; LIDOCAINE HCL/PF 200 MG/5 ML AMPUL TP PRN; LIDOCAINE HCL/PF 5 ML VIAL IO PRN; NORMAL SALINE 3 ML BOX IV PRN; TETRACAINE HCL 150 DROP BTL OP PRN
[2017-01-07] MEDS: TROPICAMIDE 150 DROP BTL LEFTEYE PRN ×3 (15:40→16:08)
[2017-01-07] MEDS: PHENYLEPHRINE HCL 50 DROP BTL LEFTEYE PRN ×3 (15:40→16:08)
[2017-01-07 17:58] VITALS: BP 153/92
== END 2017-01-07 14:46 | disposition home or self-care (01) ==
LOC: AMB 14:45
PROVIDERS: ATTEND Ophthalmology
PROC: 08RK3JZ Replacement of Left Lens with Synthetic Substitute, Percutaneous Approach (ICD-10-PCS; principal; 2017-01-07 14:00)
DX: H26.8 Other specified cataract (principal); I10 Essential (primary) hypertension; E78.5 Hyperlipidemia, unspecified; K21.9 Gastro-esophageal reflux disease without esophagitis; G35 Multiple sclerosis; I87.2 Venous insufficiency (chronic) (peripheral); F31.9 Bipolar disorder, unspecified; Z87.891 Personal history of nicotine dependence; Z68.41 Body mass index [BMI] 40.0-44.9, adult

== ENCOUNTER 2017-01-21 10:44 | Day surgery (SDC) | payer MEDICAID, OTHER ==
[~2017-01-21 10:44] MED LIST changes: -CYCLOPENTOLATE HCL 20 DROP BTL LEFTEYE PRN; +CYCLOPENTOLATE HCL 20 DROP BTL RIGHTEYE PRN
[2017-01-21] MEDS: TROPICAMIDE 150 DROP BTL RIGHTEYE PRN ×3 (11:34→11:56)
[2017-01-21] MEDS: PHENYLEPHRINE HCL 50 DROP BTL RIGHTEYE PRN ×3 (11:34→11:56)
[2017-01-21 14:02] VITALS: BP 140/63
== END 2017-01-21 10:45 | disposition home or self-care (01) ==
LOC: AMB 10:44
PROVIDERS: ATTEND Ophthalmology
PROC: 08RJ3JZ Replacement of Right Lens with Synthetic Substitute, Percutaneous Approach (ICD-10-PCS; principal; 2017-01-21 12:05)
DX: H26.8 Other specified cataract (principal); I10 Essential (primary) hypertension; E78.5 Hyperlipidemia, unspecified; K21.9 Gastro-esophageal reflux disease without esophagitis; F31.89 Other bipolar disorder; Z87.891 Personal history of nicotine dependence; Z68.41 Body mass index [BMI] 40.0-44.9, adult